=== PATIENT | male | born 1960 | race Caucasian/White ===

== ENCOUNTER 2018-01-31 15:31 | Emergency (ER) | payer MEDICARE, SELFPAY ==
[2018-01-31 15:32] VITALS: BP 183/102; PULSE 119; RESP 16; TEMP 36.5; O2SAT 98; BMI 38.7
[2018-01-31 15:56] LABS: Bedside Glucose 137 mg/dL (70-110)
[2018-01-31 15:57] LABS: Absolute Lymphocyte Count 1.45 X10^3/ul (0.83-4.51); Absolute Neutrophil Count 5.6 X10^3/uL (2.0-7.7); Basophil# 0.04 X10^3/uL; Basophil% 0.5 % (0-1); Eosinophil# 0.12 X10^3/uL; Eosinophils% 1.6 % (0-5); Hematocrit 44.8 % (40-54); Hemoglobin 15.3 g/dl (13.0-16.5); Lymphocyte # 1.45 X10^3/ul (4.0); Lymphocyte % 18.8 % (19-41); Mean Corp Hgb Conc 34.2 g/gl (32-36); Mean Corpuscular Hgb 30.4 pg (27.0-32.0); Mean Corpuscular Volume 88.9 fL (80-94); Mean Platelet Vol. 9.6 fl (6.2-12.0); Monocyte# 0.47 X10^3/uL; Monocyte% 6.1 % (0-10); Neutrophil # 5.62 X10^3/uL (2.7-7.7); Neutrophil % 72.7 % (47-70); Platelet Count 248 K/mm3 (150-450); RBC Distribution Width CV 13.4 % (11.6-14.6); RBC Distribution Width SD 43.5 fl (35.1-43.9); Red Blood Count 5.04 M/mm3 (4.6-6.2); White Blood Count 7.7 K/mm3 (4.4-11.0)
[2018-01-31 15:59] LABS: POSITIVE COUNT NO; POSITIVE DIFFERENTIAL NO; POSITIVE MORPHOLOGY NO
--- NOTE | 2018-01-31 16:05 | ED.RN ---
ordered pt reg diet per dr lozano order.
[2018-01-31 16:20] LABS: Anion Gap 11 (5-15); BUN 16 mg/dL (7-18); BUN/Creat Ratio 21.6 RATIO (10-20); Calcium,Total 9.3 mg/dL (8.5-10.1); Chloride 105 mmol/L (98-107); Creatinine, Serum 0.74 mg/dL (0.70-1.30); EST Glomerular Filtration Rate 115 mL/min (>60); Est Glom Filt Rate - Afr Amer 139 mL/min (>60); Estimated Creatinine Clearance 110.98 ml/min; Glucose 154 mg/dL (74-106); Potassium 3.9 mmol/L (3.5-5.1); Sodium Level 141 mmol/L (136-145)
--- NOTE | 2018-01-31 16:23 | ED.RN ---
ordered pt tray. sister to bringin pt medication bottles. pt has not had meds today.
[2018-01-31 17:01] LABS: Alcohol, Blood (Medical)-Serum < 3.0 mg/dL
[2018-01-31 17:12] VITALS: BP 177/85; PULSE 113; RESP 18; O2SAT 99
[2018-01-31] MEDS: Losartan Potassium 50 MG Tablet PO (17:42)
[2018-01-31 17:54] LABS: Amphetamine Urine VISTA NEGATIVE (<1000 ng/mL); Barbiturate Urine VISTA NEGATIVE (< 200 ng/mL); Benzodiazepine Urine VISTA NEGATIVE (< 200 ng/mL); Cocaine Urine VISTA NEGATIVE (< 300 ng/mL); Ecstacy Urine VISTA NEGATIVE (< 500 ng/mL); Methadone Urine VISTA NEGATIVE (< 300 ng/mL); PCP Urine VISTA NEGATIVE (< 25 ng/mL); THC Urine VISTA NEGATIVE (< 50 ng/mL); Vista UDS pH Range 6
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
[2018-01-31 19:44] VITALS: BP 182/103; PULSE 98; RESP 16; TEMP 36.9; O2SAT 95
--- NOTE | 2018-01-31 21:23 | ED.RN ---
spoke with Dr. Moreno. family is trying to get in contact with . needs to speak with her that she feels comfortable taking pt home.e
--- NOTE | 2018-01-31 22:07 | ED.DEP ---
ED Disposition - Plan for ED Patient: Disposition: Home or Assisted Living Chief Complaint: Suicidal Instructions: ED Depression Referrals: Alejandro Mcdermott, CHRIS-C [Primary Care Provider] - Counseling,Center [GROUP OF PHYSICIANS] - As soon as possible
[2018-01-31 22:21] VITALS: BP 145/77; PULSE 95; RESP 18; O2SAT 97
--- NOTE | 2018-01-31 22:22 | ED.RN ---
PT AND FAMILY EDUCATED ON DISCHARGE INSTRUCTIONS. PT 1:1 SITTER D/C BY DR. HWANG. PT VERBALIZES UNDERSTANDING AND DENIES ANY FURTHER QUESTIONS. PT DRESSES SELF AND AMBULATES OUT OF DEPT WITH FAMILY. PT TO FOLLOW UP WITH COUNSELING CENTER.
== END 2018-01-31 22:26 | disposition home or self-care (01) ==
PROVIDERS: Emergency Provider Emergency Medicine; Family Provider Nurse Practitioner Family; PCP Nurse Practitioner Family
DX: F32.9 Major depressive disorder, single episode, unspecified (principal); T14.8XXA Other injury of unspecified body region, initial encounter; X58.XXXA Exposure to other specified factors, initial encounter; Y93.9 Activity, unspecified; Y92.9 Unspecified place or not applicable; Z91.5 Personal history of self-harm; Z79.899 Other long term (current) drug therapy
CPT/HCPCS: 80048; 80307; 80320; 82962; 85025; 99285; G0480

== ENCOUNTER → 2019-08-29 17:44 | Outpatient (CLI) | payer MEDICARE, SELFPAY ==
[2019-08-29 19:23] LABS: M R Staph aureus DNA By PCR Negative (Negative); Probe Check PASS; Staph aureus DNA By PCR POSITIVE (Negative)
== END ==
PROVIDERS: PCP Nurse Practitioner Family; Referring Provider Podiatrist; Visit Provider Podiatrist
DX: L98.499 Non-pressure chronic ulcer of skin of other sites with unspecified severity (principal)
CPT/HCPCS: 87070; 87075; 87077; 87186; 87205; 87640

== ENCOUNTER 2019-09-06 10:04 | Outpatient (RCR) | payer MEDICARE, SELFPAY ==
[2019-09-06 10:14] VITALS: BP 159/82; PULSE 86; RESP 18; TEMP 35.9; BMI 38.9
--- NOTE | 2019-09-06 12:25 | HP.PCM_ITS ---
(1) Non-pressure chronic ulcer of other part of left foot with fat layer exposed Status: Chronic Code(s): L97.522 - Non-pressure chronic ulcer of other part of left foot with fat layer exposed (2) Type 2 diabetes mellitus with diabetic polyneuropathy Status: Chronic Code(s): E11.42 - Type 2 diabetes mellitus with diabetic polyneuropathy (3) Malnutrition Status: Chronic Code(s): E46 - Unspecified protein-calorie malnutrition History of Present Illness Date of Service: 09/06/19 Chief Complaint: Left diabetic foot ulcer History of Wound: This 59-year-old male with diabetic neuropathy and other comorbidities was seen at the wound healing center today for chronic left foot ulcer. He was referred from the foot and ankle center and was recently amendable to return to the wound healing center. This ulcer was first seen on 07-01-2019 but was present for at least several weeks prior to this date. He has recently been changing the dressing with Aquacel and hydrogel on a intermittent basis. He tries to offload with a surgical shoe and uses a walker. His gait has significantly improved over the past year. He has had cultures obtain x- rays and updated lab work mainly at [facility]. He denies current fever, chill, nausea, vomiting. He was recently started on levofloxacin for positive culture results and delayed healing. He denies diarrhea. He washes his foot with soap and water. Past Medical History Past Medical History: Chronic Problems Malnutrition (Chronic) Delayed wound healing (Chronic) Non-pressure chronic ulcer of other part of left foot with fat layer exposed (Chronic) Type 2 diabetes mellitus with diabetic polyneuropathy (Chronic) Surgical History: noncontributory Allergies/Adverse Reactions: Allergies No Known Allergies Allergy (Verified 09/06/19 10:34) Home Medications: Ambulatory Orders Medication Instructions Recorded Fluoxetine HCl [Prozac] 40 mg PO DAILY 08/04/16 Metformin HCl [Metformin HCl ER] 1,000 mg PO DAILY 08/04/16 Glimepiride [Amaryl] 1 mg PO DAILY 01/31/18 Azathioprine [Imuran] 200 mg PO BID 09/06/19 Lives: Spouse/ Significant Other Smoking Status: Never smoker Tobacco Use: Non-smoker Review of Systems Constitutional: Denies: Chills, Fever HEENT: Denies: Sore Throat Cardiovascular: Denies: Chest Pain, Claudication Respiratory: Denies: Cough, Shortness of Breath Gastrointestinal: Denies: Diarrhea, Nausea, Vomiting Musculoskeletal: Denies: Joint Tenderness Skin: Reports: Skin Changes, Wounds Neurological: Reports: Balance problems, Incoordination, Numbness Psychiatric: Reports: Depression Endocrine: Reports: Change in Body Habitus - Physical Exam Vital Signs Temp Pulse Resp BP 96.7 F L 86 18 159/82 H 09/06/19 10:14 09/06/19 10:14 09/06/19 10:14 09/06/19 10:14 General: Alert, Oriented x3, Cooperative, No apparent distress HEENT: Atraumatic Extremities: No cyanosis, Capillary Refill Less than 3 Seconds, No Calf Tenderness, Diminished Peripheral Pulses, Edema Skin: Ulcer/ Wound - No purulence, erythema, streaking, odor, infection. Sub- fifth metatarsal head slightly proximal skin discontinuity to the left foot noted. No bogginess or fluctuance on palpation. This is probing previously deep to the bone and now is more superficial. There is no maceration or eschar noted. The adjacent skin is hairless and atrophic Wound Measurements and Assessment WC - Nurse 1 - General Ulcer Measurement Start: 09/06/19 09:12 Freq: Status: Active Protocol: Activity Type Activity Date Activity User E-Sign Co-Sign Detail Recorded Client Recorded Date Recorded By Document 09/06/19 10:14 DL [id number] 09/06/19 10:25 DL 09/06/19 10:14 Wound Center Nurse 1 [Ulcer Assessment] #2 Lateral Left Plantar -Current Size (cm) - Length 1.8 -Current Size (cm) - Width 1.0 -Current Size (cm) - Depth 0.6 -Total Square Cm 1.80 -Date of Last Picture (Recall this 09/06/19 field) -Photo Taken Yes -Epithelialization None Present -Tunneling No -Undermining/Tunneling No -Circular Undermining No -Classification - Thickness Full Thickness without Exposed Support Structure -Exudate Amt Medium -Exudate Type Serosanguineous -Wound Margin Flat & Intact -Granulation Amt None Present (0 %) -Granulation Quality N/A -Slough/Fibrin Yes -Necrosis Amt None Present (0 %) -Necrotic Tissue Type Adherent Slough -Structure Exposed None/Limited to Skin Breakdown -Texture (Lesia-wound Skin Appearance) Assessed, Localized Edema ,Scarring -Moisture (Lesia-wound Skin Appearance Assessed, ) Weeping -Color (Lesia-wound Skin Appearance) No Abnormality, Assessed -Temperature (Lesia-wound Skin No Abnormality Appearance) (Pt Warm) -Tenderness on Palpation (Lesia-wound Yes Skin Appearance) -Ulcer Cleansing Rinsed/ Irrigated with Saline -Foul Odor after Cleansing No -Anesthetic Used 4% Lidocaine Solution [Edema Assessment] -Lower Limb Edema Present No WC - Nurse 2 - General Ulcer CM Notes Start: 09/06/19 09:12 Freq: Status: Active Protocol: Activity Type Activity Date Activity User E-Sign Co-Sign Detail Recorded Client Recorded Date Recorded By Document 09/06/19 10:45 [id number] 09/06/19 10:46 09/06/19 10:45 Wound Center Nurse 2 [Procedure/Treatment] #2 Lateral Left Plantar -Time 10:45 -Correct Patient Yes -Correct Side, Site, Position Yes -Correct Procedure Yes -Procedure Performed Yes -Type of Procedure Debridement -Clinical Debridement Subcutaneous -Post Debridement Size (cm) - Length 1.8 -Post Debridement Size (cm) - Width 1.1 -Post Debridement Size (cm) - Depth 0.6 -Total Square Cm 1.98 -Wound/Ulcer Outcome Not Healed -Ulcer Cleansing Rinsed/ Irrigated with Saline -Foul Odor after Cleansing No -Bioengineered Tissue No -Bleeding Controlled with Pressure -Offloading No -Treatment Response Procedure Tolerated Well [See Physician Procedure note for Specifics] Pain Scale: 0-10 Numeric [Pain] -Is Patient Pain Free? Yes Musculoskeletal: No Tenderness to Palpation of Joints or Extremities, Muscle Wasting, - - Dorsal contracture lesser digits and prominent metatarsal head noted left foot. Compartments remain soft to palpate on the left foot Neurological: - - Lack of epicritic sensation light touch is consistent with neuropathy status Psych/Mental Status: Normal Affect, Appropriate Debridement Note Post-Debridement Measurements/Treatment - Nurse 2 - General Ulcer CM Notes Start: 09/06/19 09:12 Freq: Status: Active Protocol: Activity Type Activity Date Activity User E-Sign Co-Sign Detail Recorded Client Recorded Date Recorded By Document 09/06/19 10:45 [email or web address] [id number] 09/06/19 10:46 09/06/19 10:45 Wound Center Nurse 2 #2 Lateral Left Plantar -Time 10:45 -Correct Patient Yes -Correct Side, Site, Position Yes -Correct Procedure Yes -Procedure Performed Yes -Type of Procedure Debridement -Clinical Debridement Subcutaneous -Post Debridement Size (cm) - Length 1.8 -Post Debridement Size (cm) - Width 1.1 -Post Debridement Size (cm) - Depth 0.6 -Total Square Cm 1.98 -Wound/Ulcer Outcome Not Healed -Ulcer Cleansing Rinsed/ Irrigated with Saline -Foul Odor after Cleansing No -Bioengineered Tissue No -Bleeding Controlled with Pressure -Offloading No -Treatment Response Procedure Tolerated Well Pain Scale: 0-10 Numeric Is Patient Pain Free? Yes Wound debrided: plantar lateral forefoot Laterality: Left Wound Grade/Stage: grade 2 Type of Debridement: Excisional debridement Anesthesia Used: 5% Lidocaine Gel Depth: in the subcutaneous layer Percentage of wound debrided: 100 Instrument Used: #15 blade Tissue Removed: fibrous, devitalized subcutaneous, biofilm, slough Severity: Fat Layer Exposed Amount of bleeding with debridement: Mild Bleeding Controlled with: Pressure Patient tolerated procedure well Assessment/Plan Assessment: Mercado grade 2 ulcer left foot. Diabetes with neuropathy, uncontrolled. Delayed healing. Other comorbidities Plan: I reviewed and discussed his case. He has a recurrent ulcer on his left foot. The etiology was discussed. He was reassured there are no local signs of infection. I recommended debridement and continuation of the wound healing plan at this time. The debridement was performed as noted in the clinical panel. The ulcer site sub-fifth metatarsal head left foot was excisionally debrided with a 15 blade scalpel to remove fibrous tissue, devitalized subcutaneous, biofilm, slough and peripheral callus. Verbal consent was obtained. Anesthesia locally was not administered due to his neuropathy status. He tolerated this well. Pressure was applied to maintain hemostasis. A dressing was applied. He was advised to change his dressing daily at home and he already has dressing supplies of [employer]. A surgical shoe with offloading pocket in plastazote liners were fitted and dispensed recently he was advised to continue use. I recommend an updated x-ray and labs to look for inflammatory or infection or osteomyelitis markers. Orders were provided And he ultimately had these done at [facility]. The x-ray report demonstrates that there is no skeletal abnormality.His labs were reviewed with an ESR of 78, C-reactive protein of less than 0.2, white blood cell count of 6.5, albumin 3.5, and hemoglobin A1c of 7.4%. His recent microbiology report from the wound culture demonstrated Staphylococcus aureus and Serratia marcescens which was susceptible to levofloxacin. He was started on this approximately 1 week ago and is not having side effects. He was advised to complete the course. He is also advised to continue to wash the wound with antimicrobial soap and water prior to dressing changes. He was reassured local progression of infection and systemic illness are not seen today. I offered him an advanced wound care product application such as epi-fix which has over 250 growth factors in it and is a sensory call center recruiter. His would like to hold off on this time and relates that there is continued delayed healing they would like us to see if this is covered by the insurance first. I advised him that this ulcer has been present for well over 2 months and there is already delayed healing and he is at risk for limb loss. I do not see an updated vascular study or venous insufficiency assessment on file at [facility] in the recent setting. I will confirm if this is been performed at [facility] or an outside facility. Otherwise I would like to update this exam. To continue proper nutrition optimize healing including glucose control. He was advised to return to the wound healing center in 1 week or call sooner if he is any questions or concerns. I answered all his questions.
== END 2019-09-12 23:59 ==
LOC: WC 10:04
PROVIDERS: PCP Nurse Practitioner Family; Visit Provider Podiatrist
DX: E11.621 Type 2 diabetes mellitus with foot ulcer (principal); L97.522 Non-pressure chronic ulcer of other part of left foot with fat layer exposed; E11.42 Type 2 diabetes mellitus with diabetic polyneuropathy; L03.116 Cellulitis of left lower limb
CPT/HCPCS: 11042; 99213; G0463

== ENCOUNTER 2019-09-13 08:18 | Outpatient (RCR) | payer MEDICARE, SELFPAY ==
[2019-09-13 00:39] VITALS: BP 159/82; PULSE 86; RESP 18; TEMP 35.9
[2019-09-13 11:00] VITALS: BP 164/92; PULSE 85; RESP 18; TEMP 35.8; BMI 38.9
--- NOTE | 2019-09-13 11:38 | PN.PCM_ITS ---
(1) Cellulitis of left lower limb Status: Resolved Current Visit: Yes Code(s): L03.116 - Cellulitis of left lower limb (2) Malnutrition Status: Chronic Current Visit: Yes Code(s): E46 - Unspecified protein- calorie malnutrition (3) Delayed wound healing Status: Chronic Current Visit: Yes Code(s): T14.8 - Other injury of unspecified body region (4) Non-pressure chronic ulcer of other part of left foot with fat layer exposed Status: Chronic Current Visit: Yes Code(s): L97.522 - Non-pressure chronic ulcer of other part of left foot with fat layer exposed (5) Type 2 diabetes mellitus with diabetic polyneuropathy Status: Chronic Current Visit: Yes Code(s): E11.42 - Type 2 diabetes mellitus with diabetic polyneuropathy Type of Wound Date of Service: 09/13/19 Chief Complaint: Left diabetic foot ulcer History of Wound: This 59-year-old male with diabetic neuropathy and other comorbidities was seen at the wound healing center today for chronic left foot ulcer. This ulcer was first seen on 07-01-2019 but was present for at least several weeks prior to this date. He has recently been changing the dressing with Aquacel ag. He tries to offload with a surgical shoe and uses a walker. He denies current fever, chill, nausea, vomiting. He was recently started on levofloxacin for positive culture results and delayed healing. He has completed his course and has improvement. He denies diarrhea. He washes his foot with soap and water. He had a noninvasive blood flow study completed a couple of years ago at an outside facility. He is due for updating this and he is also previously deferred application of advanced wound healing product. He is amendable to proceed with prior authorization for these recommendations today for with his plan. He initially came over to the wound healing center for consideration of advanced wound healing product but now his is apprehensive to go forward with the process. Patient defers to wherever his wants to do. She relates his prior ulcer took over a year to heal and I explained to her that this is not a normal healing time and there are things that we can do to speed this process up which is recommended. She has been very happy with the progress so far. Progress of Wound: improving quality and resolution of infection - Physical Exam Vital Signs Temp Pulse Resp BP 96.4 F L 85 18 164/92 H 09/13/19 11:00 09/13/19 11:00 09/13/19 11:00 09/13/19 11:00 General: Alert, Oriented x3, Cooperative, No apparent distress HEENT: Atraumatic Extremities: No cyanosis, Capillary Refill Less than 3 Seconds, No Calf Tenderness, Diminished Peripheral Pulses, Edema Skin: Ulcer/ Wound - Infection and The gopi-ulcer inflammation has resolved. There is still a central deep area that does extend beyond the subcutaneous layer but there is no probing to bone. Adjacent skin is hairless and atrophic Wound Measurements and Assessment WC - Nurse 1 - General Ulcer Measurement Start: 09/13/19 11:00 Freq: Status: Active Protocol: Activity Type Activity Date Activity User E-Sign Co-Sign Detail Recorded Client Recorded Date Recorded By Document 09/13/19 11:00 BS [email or web address] 09/13/19 11:08 BS 09/13/19 11:00 Wound Center Nurse 1 [Ulcer Assessment] #2 Lateral Left Plantar -Combined with other wound No -Current Size (cm) - Length 1.2 -Current Size (cm) - Width 1.5 -Current Size (cm) - Depth 0.3 -Total Square Cm 1.80 -Photo Taken No -Tunneling No -Granulation Quality [place],Red -Moisture (Gopi-wound Skin Appearance Assessed,Dry/ ) Scaly -Color (Gopi-wound Skin Appearance) Assessed, Hemosiderin Staining -Temperature (Gopi-wound Skin No Abnormality Appearance) (Pt Warm) -Tenderness on Palpation (Gopi-wound No Skin Appearance) -Ulcer Cleansing Soap and water -Foul Odor after Cleansing No -Anesthetic Used 4% Lidocaine Solution WC - Nurse 2 - General Ulcer CM Notes Start: 09/13/19 11:00 Freq: Status: Active Protocol: Activity Type Activity Date Activity User E-Sign Co-Sign Detail Recorded Client Recorded Date Recorded By Document 09/13/19 11:29 [email or web address] [id number] 09/13/19 11:30 GEMINI 09/13/19 11:29 Wound Center Nurse 2 [Procedure/Treatment] -Time 11:29 -Correct Patient Yes -Correct Side, Site, Position Yes -Correct Procedure Yes -Procedure Performed Yes -Type of Procedure Debridement -Clinical Debridement Subcutaneous -Post Debridement Size (cm) - Length 1.2 -Post Debridement Size (cm) - Width 1.6 -Post Debridement Size (cm) - Depth 0.3 -Total Square Cm 1.92 -Wound/Ulcer Outcome Not Healed -Ulcer Cleansing Rinsed/ Irrigated with Saline -Foul Odor after Cleansing No -Bioengineered Tissue No -Bleeding Controlled with Pressure -Offloading Yes -Type of Offloading Surgical Shoe -Treatment Response Procedure Tolerated Well [See Physician Procedure note for Specifics] Pain Scale: 0-10 Numeric [Pain] -Is Patient Pain Free? Yes Musculoskeletal: No Tenderness to Palpation of Joints or Extremities, Muscle Wasting, - - No bogginess or fluctuance on palpation Neurological: - - Lack of epicritic sensation light touch is consistent with neuropathy status Psych/Mental Status: Normal Affect, Appropriate Debridement Note Post-Debridement Measurements/Treatment WC - Nurse 2 - General Ulcer CM Notes Start: 09/13/19 11:00 Freq: Status: Active Protocol: Activity Type Activity Date Activity User E-Sign Co-Sign Detail Recorded Client Recorded Date Recorded By Document 09/13/19 11:29 [email or web address] [id number] 09/13/19 11:30 GEMINI 09/13/19 11:29 Wound Center Nurse 2 #2 Lateral Left Plantar -Time 11:29 -Correct Patient Yes -Correct Side, Site, Position Yes -Correct Procedure Yes -Procedure Performed Yes -Type of Procedure Debridement -Clinical Debridement Subcutaneous -Post Debridement Size (cm) - Length 1.2 -Post Debridement Size (cm) - Width 1.6 -Post Debridement Size (cm) - Depth 0.3 -Total Square Cm 1.92 -Wound/Ulcer Outcome Not Healed -Ulcer Cleansing Rinsed/ Irrigated with Saline -Foul Odor after Cleansing No -Bioengineered Tissue No -Bleeding Controlled with Pressure -Offloading Yes -Type of Offloading Surgical Shoe -Treatment Response Procedure Tolerated Well Pain Scale: 0-10 Numeric Is Patient Pain Free? Yes Wound debrided: plantar foot Laterality: Left Wound Grade/Stage: grade 2 Type of Debridement: Excisional debridement Anesthesia Used: 5% Lidocaine Gel Depth: in the subcutaneous layer Percentage of wound debrided: 100 Instrument Used: #15 blade Tissue Removed: fibrous, devitalized subcutaneous, biofilm, slough Severity: Fat Layer Exposed Amount of bleeding with debridement: Mild Bleeding Controlled with: Pressure Patient tolerated procedure well Assessment/Plan Active Problems Malnutrition (Chronic) Delayed wound healing (Chronic) Non-pressure chronic ulcer of other part of left foot with fat layer exposed (Chronic) Type 2 diabetes mellitus with diabetic polyneuropathy (Chronic) Assessment: Mercado grade 2 ulcer left foot. Diabetes with neuropathy, uncontrolled. Delayed healing. Other comorbidities. Cellulitis resolved Plan: I reviewed and discussed his case. He has a recurrent ulcer on his left foot. The etiology was discussed. He was reassured there are no local signs of infection. I do not recommend additional antibiotics at this time. I recommended debridement and continuation of the wound healing plan at this time. The debridement was performed as noted in the clinical panel. The ulcer site sub-fifth metatarsal head left foot was excisionally debrided with a 15 blade scalpel to remove fibrous tissue, devitalized subcutaneous, biofilm, slough and peripheral callus. Verbal consent was obtained. Anesthesia locally was not administered due to his neuropathy status. He tolerated this well. Pressure was applied to maintain hemostasis. A dressing was applied. He was advised to change his dressing daily at home and he already has dressing supplies of [employer]. A surgical shoe with offloading pocket in plastazote liners were fitted and dispensed recently he was advised to continue use. I recommend an updated x-ray and labs to look for inflammatory or infection or osteomyelitis markers. Orders were provided And he ultimately had these done at [facility]. The x-ray report demonstrates that there is no skeletal abnormality.H is labs were reviewed with an ESR of 78, C-reactive protein of less than 0.2, white blood cell count of 6.5, albumin 3.5, and hemoglobin A1c of 7.4%. His previously treated microbiology report from the wound culture demonstrated Staphylococcus aureus and Serratia marcescens which was susceptible to levofloxacin. He has completed the course and has done well without side effects. He is also advised to continue to wash the wound with antimicrobial soap and water prior to dressing changes. He was reassured local progression of infection and systemic illness are not seen today. I offered him an advanced wound care product application such as epi-fix which has over 250 growth factors in it and is stem cell medical recruiter which has the capability to re-stimulate the healing process and reduce healing time thus reducing the risk of limb loss and further infections. I advised him that this ulcer has been present for well over 2 months and there is already delayed healing and he is at risk for limb loss. Prior authorization will be started for this. To continue proper nutrition optimize healing including glucose control. He was advised to return to the wound healing center in 1 week or call sooner if he is any questions or concerns. I answered all his questions.
== END 2019-10-13 23:59 ==
LOC: WC 08:18
PROVIDERS: PCP Nurse Practitioner Family; Visit Provider Podiatrist
DX: E11.621 Type 2 diabetes mellitus with foot ulcer (principal); L97.522 Non-pressure chronic ulcer of other part of left foot with fat layer exposed; E11.42 Type 2 diabetes mellitus with diabetic polyneuropathy
CPT/HCPCS: 11042